=== PATIENT | male | born 2000 | race Caucasian/White ===

== ENCOUNTER 2021-08-02 07:30 | Emergency (ER) | payer BC, OTHER ==
[~2021-08-02] VITALS: Ht 182.9 cm; Wt 104.5 kg
[2021-08-02 07:43] VITALS: BP 154/65; PULSE 98; TEMP 98.6
[2021-08-02] MEDS ORDERED: VOLTAREN 75 DR75 MG PO (08:02)
[2021-08-02] MEDS ORDERED: ANUSOL HC CREAM30 GM TP (08:02)
== END 2021-08-02 08:16 | disposition home or self-care (01) ==
LOC: COL.ER 07:30
DX: K64.9 Unspecified hemorrhoids (principal)